=== PATIENT | male | born 1955 | race Hispanic/Latino ===

== ENCOUNTER 2023-10-22 17:47 | Observation (INO) | payer MEDICARE ==
[2023-10-22 18:21] LABS: Bacteria/HPF None Seen HPF (None Seen); Bilirubin Negative (Negative); Blood, Urine Negative (Negative); CAUTI Indications for Culture Pelvic or flank pain; Clarity Clear (Clear); Glucose, Urine (Dipstick) 30 mg/dL (Negative); Ketone, Urine Negative (Negative); Leukocyte Negative Leu/uL (Negative); Nitrite Negative (Negative); Protein, Urine (Dipstick) Negative (Neg-Trace); RBC/HPF 0-3 HPF (0-3); Specific Gravity, Urine 1.017 (1.002-1.036); Squamous Epithelial None Seen HPF (0-3); Urobilinogen Greater than 12 mg/dL (Less than 2); WBC/HPF 0-3 HPF (0-3)
[2023-10-22 18:25] LABS: Urine Culture Reflex No No
[2023-10-22 18:38] LABS: #Monocytes 0.1 thou/uL (0.11-0.59); %Basophils 0.3 % (0.0-1.0); %Eosinophils 0.1 % (0.0-10.0); %Lymphocytes 2.4 % (21.0-51.0); %Neutrophils 95.8 % (42.0-75.0); Hematocrit 39.9 % (42.0-52.0); Hemoglobin 13.8 g/dL (14.0-18.0); Mean Corpuscular HGB CONC 34.6 g/dL (32.0-36.0); Mean Corpuscular Hemoglobin 29.9 pg (27.0-31.0); Mean Corpuscular Volume 86.4 fl (78.0-98.0); Mean Platelet Volume 10.1 fL (7.4-10.4); Platelet Count 280 10x3/uL (130-400); RBC Distribution Width 12.9 % (11.5-14.5); Red Blood Cell (RBC) Count 4.62 mill/uL (4.70-6.10); White Blood Cell (WBC) Count 11.5 10x3/uL (4.8-10.8)
[2023-10-22] MEDS ORDERED: Ondansetron PF 4 MG/2 ML Vial ONE (18:52)
[2023-10-22] MEDS ORDERED: Morphine 10 MG/ML VIAL ONE (18:52)
[2023-10-22 19:05] LABS: Troponin I Less than 0.010 ng/mL (< 0.028)
[2023-10-22 19:11] LABS: ALT (SGPT) 249 U/L (8-55); AST (SGOT) 322 U/L (5-34); Albumin 3.7 g/dL (3.4-4.8); Alkaline Phosphatase 236 U/L (40-110); Anion Gap 17 mmol/L (10-20); BUN (Urea Nitrogen) 15 mg/dL (8.4-25.7); Bilirubin, Total 2.6 mg/dL (0.2-1.2); Calc. Creatinine Clearance 0 mL/min (70-130); Carbon Dioxide 23 mmol/L (23-31); Chloride 103 mmol/L (98-107); Estimated GFR 98; Globulin 2.8 g/dL (2.4-3.5); Glucose 152 mg/dL (80-115); Magnesium 1.8 mg/dL (1.6-2.6); Potassium 3.6 mmol/L (3.5-5.1); Protein, Total 6.5 g/dL (5.8-8.1); Sodium 139 mmol/L (136-145)
[2023-10-22] MEDS ORDERED: Sodium Chloride 0.9% 100 ML ONE (19:12)
[2023-10-22] MEDS ORDERED: cefTRIAXone (ROCEPHIN) 1 GM VIAL ONE (19:12)
[2023-10-22] MEDS ORDERED: Acetaminophen 500 MG TAB ONE (19:12)
[2023-10-22 19:28] LABS: Lipase 1587 U/L (8-78)
[2023-10-22] MEDS ORDERED: Glucagon 1 MG/ML KIT IM PRN (22:15)
[2023-10-22] MEDS ORDERED: HumaLOG 300 UNITS/3 ML VIAL SC PRN (22:15)
[2023-10-22] MEDS ORDERED: Morphine 4 MG/ML VIAL SLOW IVP PRN (22:15)
[2023-10-22] MEDS ORDERED: Dextrose 5% in Water 1,000 ML IV PRN (22:15)
[2023-10-22] MEDS ORDERED: Dextrose 50% Abboject 50 ML SYRINGE IVP PRN (22:15)
[2023-10-22] MEDS ORDERED: Ketorolac Tromethamine 30 MG/ML VIAL IVP PRN (22:15)
[2023-10-22 22:58] LABS: Lactic Acid 2.2 mmol/L (0.5-2.2)
[2023-10-22] MEDS ORDERED: LevoFLOXacin 500 mg/D5W 500 MG in Premix 1 BAG IVPB SCH (23:00)
[2023-10-23 00:01] VITALS: BMI 23.7
[2023-10-23] MEDS: Sodium Chloride 0.9% 1,000 ML IV SCH ×2 (00:16→06:44)
[2023-10-23] MEDS ORDERED: Acetaminophen 500 MG TAB PO PRN ×2 (04:50→07:31)
[2023-10-23] MEDS ORDERED: EPINEPHrine 1 MG/ML VIAL ONE (07:08)
[2023-10-23] MEDS ORDERED: Glucagon 1 MG/ML KIT ONE (07:08)
[2023-10-23] MEDS ORDERED: Bupivacaine PF 0.5% 30 ML VIAL ONE (07:09)
[2023-10-23] MEDS ORDERED: Iopamidol 30 ML ONE (07:09)
[2023-10-23] MEDS ORDERED: Bupivacaine 0.25% HCL 30 ML VIAL ONE (07:10)
[2023-10-23] MEDS ORDERED: Dexamethasone 4 mg/ml Vial ONE ×2 (07:23→07:25)
[2023-10-23] MEDS ORDERED: Ondansetron PF 4 MG/2 ML Vial ONE ×3 (07:23→07:37)
[2023-10-23] MEDS ORDERED: Rocuronium Bromide 10 MG/ML (10ML VIAL) ONE ×3 (07:23→07:37)
[2023-10-23] MEDS ORDERED: fentaNYL PF 100 MCG/2 ML SYRINGE ONE (07:23)
[2023-10-23] MEDS ORDERED: PROPOFOL 20 ML ONE (07:23)
[2023-10-23] MEDS ORDERED: traMADol HCl 50 MG TAB PO PRN (07:29)
[2023-10-23] MEDS ORDERED: Ibuprofen 600 MG TAB PO PRN (07:29)
[2023-10-23] MEDS ORDERED: PROPOFOL 200 MG/20 ML VIAL ONE (07:37)
[2023-10-23] MEDS ORDERED: Dexamethasone 20 MG/5 ML VIAL ONE (07:37)
[2023-10-23] MEDS ORDERED: SUGAMMADEX SODIUM 200 MG/2 ML VIAL ONE (08:36)
[2023-10-23 16:44] VITALS: BP 135/72
[2023-10-23 16:59] VITALS: TEMP 101.4
[2023-10-23] MEDS ORDERED: LevoFLOXacin 500 mg/D5W 500 MG in Premix 1 BAG IVPB SCH (17:45)
[2023-10-26] MEDS ORDERED: FLU VACC QS2023(65UP)/MF59C/PF 60 MCG/0.5 ML SYRINGE IM ONE (09:00)
== END 2023-10-23 18:48 | disposition home or self-care (01) ==
LOC: ERS 17:47 → T4-A 21:58
PROVIDERS: ADMIT Specialist; ATTEND Specialist
PROC: 0FT44ZZ Resection of Gallbladder, Percutaneous Endoscopic Approach (ICD-10-PCS; principal; 2023-10-23)
PROC: BF13YZZ Fluoroscopy of Gallbladder and Bile Ducts using Other Contrast (ICD-10-PCS; 2023-10-23)
DX: K80.12 Calculus of gallbladder with acute and chronic cholecystitis without obstruction (principal); K85.90 Acute pancreatitis without necrosis or infection, unspecified; E11.9 Type 2 diabetes mellitus without complications; I10 Essential (primary) hypertension; F17.210 Nicotine dependence, cigarettes, uncomplicated; Z79.4 Long term (current) use of insulin; Z79.899 Other long term (current) drug therapy
CPT/HCPCS: 47532; 47563; 74177; 76705; 80053; 81001; 82248; 82962; 83605; 83690; 83735; 84484; 85025; 87040; 87149 ×2; 87804 ×2; 93005; 96375; C1889 ×2; G0378 ×2; J0171; J1611; 36415; 36416; 87077; 88304; J0696; J1100; J1885; J1956; J2270; J2405; J2704; J3490; J7050; Q9967; S0020